=== PATIENT | female | born 1960 | race Caucasian/White ===

== ENCOUNTER 2016-07-27 16:21 | Outpatient (CLI) | payer MEDICARE ==
[2016-07-27 16:38] LABS: BASOPHILS % (AUTO) 0.6 %; EOSINOPHILS # (AUTO) 0.1 10^3/uL (0.0-0.7); HCT - HEMATOCRIT 39.5 % (37.0-47.0); HGB - HEMOGLOBIN 13.2 g/dL (12.0-16.0); LYMPHOCYTES # (AUTO) 2.3 10^3/uL (1.5-3.5); LYMPHOCYTES % (AUTO) 36.8 %; MEAN CORPUSCULAR HGB CONC 33.5 g/dL (32.0-36.0); MEAN CORPUSCULAR VOLUME 92.4 fL (81.0-99.0); MEAN PLATELET VOLUME 8.6 fL (7.9-10.8); MONOCYTES # (AUTO) 0.4 10^3/uL (0.0-1.0); MONOCYTES % (AUTO) 7.1 %; NEUTROPHILS # (AUTO) 3.3 10^3/uL (1.5-6.6); NEUTROPHILS % (AUTO) 53.5 %; RED BLOOD COUNT 4.27 10^6/uL (4.20-5.40); RED CELL DISTRIBUTION WIDTH 14.1 % (12.0-15.0); UNCORRECTED WHITE BLOOD COUNT 6.2 x10^3/uL; WHITE BLOOD COUNT 6.2 x10^3/uL (4.8-10.8)
== END 2016-07-27 16:22 | disposition home or self-care (01) ==
LOC: LAB 16:21
PROVIDERS: ATTEND Family Medicine
DX: Z85.3 Personal history of malignant neoplasm of breast (principal)
CPT/HCPCS: 36415; 85025; 85651

== ENCOUNTER 2019-06-24 15:25 | Outpatient (CLI) | payer MEDICARE | END 2019-06-24 15:26 | disposition critical access hospital (66) | LOC: EMS 15:25 | PROVIDERS: ATTEND Surgery | DX: T48.1X2A Poisoning by skeletal muscle relaxants [neuromuscular blocking agents], intentional self-harm, initial encounter (principal) | CPT/HCPCS: A0425; A0429 ==

== ENCOUNTER 2019-06-24 15:52 | Emergency (ER) | payer MEDICARE ==
--- NOTE | 2019-06-24 16:02 | ED Physician Documentation ---
<Abimael Presley - Last Filed: 06/24/19 23:42> PD HPI MHE - Stated complaint Stated Complaint: OD - History obtained from History obtained from: Patient (About 130 today she took an unknown number of cyclobenzaprine in an attempt to kill herself. The stressor for her was that few weeks ago her son .) Review of Systems Ten Systems: 10 systems reviewed and negative Constitutional: reports: Reviewed and negative Throat: reports: Reviewed and negative Cardiac: reports: Reviewed and negative Respiratory: reports: Reviewed and negative PD PAST MEDICAL HISTORY - Allergies Allergies/Adverse Reactions: Allergies Allergy/AdvReac Type Severity Reaction Status Date / Time morphine Allergy Anaphylaxis Verified 06/24/19 16:02 PD ED PE NORMAL - Vitals Vital signs reviewed: Yes - General General: No acute distress, Other (She is sleepy but arousable, at times uncooperative. radio repairer note that she was "in and out of consciousness," prior to arrival, but on my examination this is just when she does not want to answer questions.) - HEENT HEENT: PERRL, EOMI - Neck Neck: Supple, no meningeal sign, No bony TTP - Cardiac Cardiac: RRR, No murmur - Respiratory Respiratory: No respiratory distress, Clear bilaterally - Abdomen Abdomen: Normal bowel sounds, Soft, Non tender - Back Back: No CVA TTP, No spinal TTP - Derm Derm: Normal color, Warm and dry - Extremities Extremities: No edema, No calf tenderness / cord - Neuro Neuro: Alert and oriented X 3, Normal speech Results - EKG (time done) 1606 Rate: Rate (enter#) (91) Rhythm: NSR [place]: Normal QRS: Low voltage Ischemia: Non specific changes Computer interpretation: Disagree with computer PD MEDICAL DECISION MAKING - ED course ED course: 59yo woman with intnentional flexeril O/D. Initially cooperative, but tried to leave so converted to invol. DCR tried to interview, but too sleepy. Departure - Departure Clinical Impression: Overdose Qualifiers: Encounter type: initial encounter Injury intent: intentional self-harm Qualified Code(s): T50.902A - Poisoning by unspecified drugs, medicaments and biological substances, intentional self-harm, initial encounter <Kieran Mancuso - Last Filed: 06/25/19 13:15> Results - Vitals Vitals: Vital Signs - 24 hr 06/24/19 06/24/19 06/24/19 16:02 16:12 16:36 Temperature 36.5 C Heart Rate 96 91 88 Respiratory 14 13 12 Rate Blood Pressure 131/82 H 127/86 H 107/79 O2 Saturation 95 91 L 93 06/24/19 06/24/19 06/24/19 17:06 17:30 18:00 Temperature Heart Rate 83 83 94 Respiratory 10 L 9 L 18 Rate Blood Pressure 125/78 107/79 98/68 O2 Saturation 98 96 95 06/24/19 06/24/19 06/24/19 18:30 19:00 19:30 Temperature Heart Rate 99 89 84 Respiratory 17 15 13 Rate Blood Pressure 99/67 96/66 84/60 L O2 Saturation 95 97 97 06/24/19 06/24/19 06/24/19 20:00 20:30 21:00 Temperature Heart Rate 92 82 87 Respiratory 13 14 14 Rate Blood Pressure 95/77 94/69 96/73 O2 Saturation 96 100 97 06/24/19 06/24/19 06/24/19 21:30 22:02 22:30 Temperature Heart Rate 87 87 92 Respiratory 14 16 15 Rate Blood Pressure 109/82 H 108/79 119/75 O2 Saturation 95 100 96 06/24/19 06/25/19 06/25/19 23:00 00:00 01:30 Temperature Heart Rate 91 95 99 Respiratory 15 15 15 Rate Blood Pressure 111/86 H 108/81 H 101/74 O2 Saturation 97 96 96 06/25/19 06/25/19 06/25/19 03:00 04:00 05:00 Temperature 37.2 C Heart Rate 99 97 98 Respiratory 16 15 18 Rate Blood Pressure 106/78 112/78 107/79 O2 Saturation 96 95 92 06/25/19 06/25/19 06/25/19 06:00 08:15 10:27 Temperature Heart Rate 96 98 86 Respiratory 14 10 L 18 Rate Blood Pressure 111/74 95/62 101/72 O2 Saturation 91 L 92 95 06/25/19 12:45 Temperature Heart Rate 92 Respiratory 17 Rate Blood Pressure 104/65 O2 Saturation 93 Oxygen O2 Source Room air - EKG (time done) 0727 Rate: Rate (enter#) (103) Rhythm: Sinus tachycardia Intervals: Prolonged QT Compare to prior EKG: Changed from prior EKG (SPT 06-24-2019 the rate has increased slightly and the QTc has decreased slightly ) Computer interpretation: Agree with computer 1235 Rate: Rate (enter#) (86) Rhythm: NSR Intervals: Wide QRS Compare to prior EKG: Changed from prior EKG (SPT 06-25-2019 the rate has decreased and the QTc is now in the normal range at 463) Computer interpretation: Agree with computer - Labs Labs: Laboratory Tests 06/24/19 06/24/19 06/24/19 16:25 16:25 16:25 WBC 11.2 H RBC 4.01 L Hgb 12.9 Hct 38.7 MCV 96.5 MCH 32.2 H MCHC 33.3 RDW 13.9 Plt Count 178 MPV 10.3 Neut # (Auto) 9.9 H Lymph # (Auto) 0.6 L [place] # (Auto) 0.6 Eos # (Auto) 0.0 Baso # (Auto) 0.0 Absolute Nucleated RBC 0.00 Nucleated RBC % 0.0 Sodium 138 Potassium 3.7 Chloride 105 Carbon Dioxide 26 Anion Gap 7.0 BUN 14 Creatinine 0.8 Estimated GFR (MDRD) 73 L Glucose 143 H Calcium 9.1 Total Bilirubin 0.5 AST 19 ALT 17 Alkaline Phosphatase 50 Total Protein 7.3 Albumin 4.3 Globulin 3.0 Albumin/Globulin Ratio 1.4 Lipase 27 TSH 0.69 Urine Color Urine Clarity Urine pH Ur Specific [place] Urine Protein Urine Glucose (UA) Urine Ketones Urine Occult Blood Urine Nitrite Urine Bilirubin Urine Urobilinogen Ur Leukocyte Esterase Ur Microscopic Review Urine Culture Comments Salicylates < 6.0 Urine Opiates Screen Ur Oxycodone Screen Urine Methadone Screen Ur Propoxyphene Screen Acetaminophen < 10 L Ur Barbiturates Screen Ur Tricyclics Screen Ur Phencyclidine Scrn Ur Amphetamine Screen U Methamphetamines Scrn U Benzodiazepines Scrn Urine Cocaine Screen U Cannabinoids Screen Ethyl Alcohol < 5.0 06/24/19 19:59 WBC RBC Hgb Hct MCV MCH MCHC RDW Plt Count MPV Neut # (Auto) Lymph # (Auto) [place] # (Auto) Eos # (Auto) Baso # (Auto) Absolute Nucleated RBC Nucleated RBC % Sodium Potassium Chloride Carbon Dioxide Anion Gap BUN Creatinine Estimated GFR (MDRD) Glucose Calcium Total Bilirubin AST ALT Alkaline Phosphatase Total Protein Albumin Globulin Albumin/Globulin Ratio Lipase TSH Urine Color YELLOW Urine Clarity CLEAR Urine pH 5.5 Ur Specific [place] >=1.030 H Urine Protein TRACE Urine Glucose (UA) NEGATIVE Urine Ketones NEGATIVE Urine Occult Blood NEGATIVE Urine Nitrite NEGATIVE Urine Bilirubin NEGATIVE Urine Urobilinogen 0.2 (NORMAL) Ur Leukocyte Esterase NEGATIVE Ur Microscopic Review NOT INDICATED Urine Culture Comments NOT INDICATED Salicylates Urine Opiates Screen POSITIVE H Ur Oxycodone Screen POSITIVE H Urine Methadone Screen NEGATIVE Ur Propoxyphene Screen NEGATIVE Acetaminophen Ur Barbiturates Screen NEGATIVE Ur Tricyclics Screen POSITIVE H Ur Phencyclidine Scrn NEGATIVE Ur Amphetamine Screen NEGATIVE U Methamphetamines Scrn NEGATIVE U Benzodiazepines Scrn POSITIVE H Urine Cocaine Screen POSITIVE H U Cannabinoids Screen NEGATIVE Ethyl Alcohol PD MEDICAL DECISION MAKING - ED course ED course: Picked up on shift the care of this patient from Dr. Sloan. She had been asleep most of the night and required a dose of Ativan this morning when she began to exhibit bizarre behavior. She required restraint. Her initial electrocardiogram had a prolonged QT interval and she was not excepted at the psychiatric facility. A second electrocardiogram done this morning also has p rolonged QT interval. She is subsequently administered 2 g of magnesium sulfate and 1 L of saline and her QT interval normalizes.She is now medically cleared for psychiatric evaluation.
[2019-06-24 16:30] LABS: BASOPHILS % (AUTO) 0.4 %; EOSINOPHILS % (AUTO) 0.2 %; HGB - HEMOGLOBIN 12.9 g/dL (12.0-16.0); LYMPHOCYTES # (AUTO) 0.6 10^3/uL (1.5-3.5); LYMPHOCYTES % (AUTO) 5.7 %; MEAN CORPUSCULAR HEMOGLOBIN 32.2 pg (27.0-31.0); MEAN CORPUSCULAR HGB CONC 33.3 g/dL (32.0-36.0); MEAN CORPUSCULAR VOLUME 96.5 fL (81.0-99.0); MEAN PLATELET VOLUME 10.3 fL (7.9-10.8); MONOCYTES # (AUTO) 0.6 10^3/uL (0.0-1.0); NEUTROPHILS # (AUTO) 9.9 10^3/uL (1.5-6.6); NEUTROPHILS % (AUTO) 88.3 %; PLT - PLATELET COUNT 178 10^3/uL (130-450); RED BLOOD COUNT 4.01 10^6/uL (4.20-5.40); RED CELL DISTRIBUTION WIDTH 13.9 % (12.0-15.0); WHITE BLOOD COUNT 11.2 x10^3/uL (4.8-10.8)
[2019-06-24 16:46] LABS: ACETAMINOPHEN < 10 ug/mL (10-30); ALBUMIN 4.3 g/dL (3.2-5.5); ALBUMIN/GLOBULIN RATIO 1.4 (1.0-2.2); ALKALINE PHOSPHATASE 50 IU/L (42-121); ALT ALANINE AMINOTRANSFERASE 17 IU/L (10-60); AST ASPARTATE AMINOTRANSFERASE 19 IU/L (10-42); BILIRUBIN,TOTAL 0.5 mg/dL (0.2-1.0); BUN - BLOOD UREA NITROGEN 14 mg/dL (6-20); CALCIUM 9.1 mg/dL (8.5-10.3); CARBON DIOXIDE - CO2 26 mmol/L (21-32); CHLORIDE 105 mmol/L (101-111); CREATININE 0.8 mg/dL (0.4-1.0); GLUCOSE 143 mg/dL (70-100); LIPASE 27 U/L (22-51); SALICYLATE < 6.0 mg/dL; SODIUM 138 mmol/L (135-145); TOTAL PROTEIN 7.3 g/dL (6.7-8.2)
[2019-06-24] MEDS ORDERED: NICOTINE 21 MG PATCH TOP STA (17:28)
[2019-06-24 20:04] LABS: MUDS CUTOFF CONCENTRATIONS CUTOFF CONC BELOW:
[2019-06-24 20:06] LABS: BILIRUBIN,URINE NEGATIVE (NEGATIVE); GLUCOSE, URINE (UA) NEGATIVE (NEGATIVE); KETONES,URINE (UA) NEGATIVE (NEGATIVE); LEUKOCYTE ESTERASE, URINE NEGATIVE (NEGATIVE); NITRITE,URINE NEGATIVE (NEGATIVE); OCCULT BLOOD,URINE NEGATIVE (NEGATIVE); PH,URINE 5.5 PH (5.0-7.5); PROTEIN,URINE TRACE mg/dL (NEGATIVE); UROBILINOGEN,URINE 0.2 (NORMAL) E.U./dL (NORMAL)
[2019-06-24 20:10] LABS: CLARITY,URINE CLEAR (CLEAR)
[2019-06-24 20:23] LABS: AMPHETAMINE SCREEN,URINE NEGATIVE (NEGATIVE); BENZODIAZEPINES SCREEN, URINE POSITIVE (NEGATIVE); COCAINE SCREEN URINE POSITIVE (NEGATIVE); METHADONE SCREEN, URINE NEGATIVE (NEGATIVE); METHAMPHETAMINES SCREEN, URINE NEGATIVE (NEGATIVE); OPIATE SCREEN, URINE POSITIVE (NEGATIVE); OXYCODONE SCREEN, URINE POSITIVE (NEGATIVE); PROPOXYPHENE SCREEN, URINE NEGATIVE (NEGATIVE); TRICYCLIC ANTIDEPRESSANT,URINE POSITIVE (NEGATIVE)
[2019-06-25] MEDS ORDERED: LORazepam 2 MG/ML VIAL IM STA (06:39)
[2019-06-25] MEDS ORDERED: LORazepam 2 MG/ML VIAL ONE (06:45)
--- NOTE | 2019-06-25 07:34 | ED Physician Documentation ---
ED Addendum - Addendum Addendum: 06/25/19 07:00 Received sign out from Dr. Presley at end of his shift. Early in my shift, I was contacted by DCR and was told that patient has provisional acceptance to [facility] but will need repeat EKG with improved QTc (less than 500). Additionally, DCR requests we contact them again when patient is awake and alert enough for reevaluation by DCR. Unfortunately, at the end of my shift (approximately 6:35 AM), patient woke due to patient in adjacent ED room yelling. Patient rapidly became agitated and uncooperative, came out to nurse's station demanding to leave. She refused to get back into the room despite staff and myself explaining to her that she needs to stay in ED for further evaluation, as she overdosed on medication last night and cannot simply be discharged at this time. It took several ED staff to escort her back into the bed. She then repeatedly tried to get out of the bed and eventually became combative, requiring physical and chemical restraints (IM ativan).
[2019-06-25] MEDS ORDERED: SODIUM CHLORIDE 0.9% 1,000 ML IV ONE (07:42)
[2019-06-25] MEDS ORDERED: MAGNESIUM SULFATE 2 GRAM 2 GM/50 ML BAG IV ONE (07:42)
--- NOTE | 2019-06-25 17:48 | ED Physician Documentation ---
ED Addendum - Addendum Addendum: 06/25/19 17:47 DCR saw the patient and reportedly arranged for transfer to [facility] under the care of Dr. Herbert, piaras were completed and she is stable to transport for higher level of psychiatric care.
[2019-06-25] MEDS ORDERED: SUMAtriptan 25 MG TABLET PO STA (17:58)
[2019-06-25] MEDS ORDERED: oxyCODONE 5 MG TABLET PO STA (17:58)
[2019-06-25] MEDS ORDERED: LEVOTHYROXINE 75 MCG TABLET PO STA (17:58)
[2019-06-25] MEDS ORDERED: PROCHLORPERAZINE 5 MG TABLET PO STA (17:58)
[2019-06-25] MEDS ORDERED: LORazepam 0.5 MG TABLET PO STA (17:58)
[2019-06-25] MEDS ORDERED: CETIRIZINE 10 MG TABLET PO STA (17:58)
[2019-06-25] MEDS ORDERED: LIDOCAINE PATCH 5% TOP STA (19:31)
[2019-06-25] MEDS ORDERED: NICOTINE 21 MG PATCH TOP STA (19:31)
[2019-06-25] MEDS ORDERED: LORazepam 1 MG TABLET PO STA (23:53)
[2019-06-26 02:05] VITALS: BP 90/61
== END 2019-06-26 01:50 ==
LOC: EDUNIT# → ED 15:52
DX: T48.1X2A Poisoning by skeletal muscle relaxants [neuromuscular blocking agents], intentional self-harm, initial encounter (principal); R40.0 Somnolence; R45.1 Restlessness and agitation; R94.31 Abnormal electrocardiogram [ECG] [EKG]; F32.9 Major depressive disorder, single episode, unspecified; Z78.1 Physical restraint status
CPT/HCPCS: 36415; 51701; 80053; 81003; 83690; 84443; 85025; 93005; 96365; 96372; 99283; 99285; A9270; J2060; J8499; 80306; 80307; 80320; 80329; 81001; 87086

== ENCOUNTER 2022-07-24 17:25 | Outpatient (CLI) | payer MEDICARE | END 2022-07-24 23:59 | disposition EMS.NT | LOC: EMS 17:25 | DX: S01.81XA Laceration without foreign body of other part of head, initial encounter (principal); W17.89XA Other fall from one level to another, initial encounter; Y92.008 Other place in unspecified non-institutional (private) residence as the place of occurrence of the external cause ==